=== PATIENT | female | born 1975 | race Caucasian/White ===

== ENCOUNTER → 2020-10-18 19:29 | Outpatient (REF) | payer MEDICAID, SELFPAY | LOC: HO.SL 19:29 | PROVIDERS: Visit Provider Internal Medicine | DX: G47.33 Obstructive sleep apnea (adult) (pediatric) (principal) | CPT/HCPCS: 95810 ==

== ENCOUNTER → 2021-05-18 09:57 | Outpatient (REF) | payer MEDICAID, SELFPAY ==
--- NOTE | 2021-05-18 10:00 | CA_ITS ---
Acquisition Time: 2021-05-18 10:43:04 Total Exercise Time: 00:07:31 Test Indications: EXERTIONAL CHEST PAIN Medications: Protocol: MOD JASMYN Max HR: 164 BPM 94% of Pred: 173 BPM Max BP: 156/080 mmHG Max Work Load: 4.4 METS Exercise stress test with exercise 26 sec of Jasmyn protocol and unable to tolerate incline of treadmill. Treadmill stopped and protocol changed to Modified Jasmyn protocol. Exercised 7 min 31 sec of Modified Jasmyn protocol, acheiving 4.3 MET workload, wiith mild sob, no chest discomfort, without arrythmia, with normotensive response and brisk chronotropic response to exercise, without EKG changes meeting criteria for ischemia. Test reviewed with Dr Hernandez Referred By: Omid Trejo Overread By: YOLANDA POLLOCK
== END ==
LOC: HO.CARD 09:57
PROVIDERS: Visit Provider Internal Medicine
DX: R07.9 Chest pain, unspecified (principal)
CPT/HCPCS: 93017

== ENCOUNTER 2023-06-15 12:16 | Emergency (ER) | payer MEDICAID, SELFPAY ==
--- NOTE | ~2023-06-15 | XR_ITS ---
EXAMINATION: XR KNEE, LEFT CLINICAL INFORMATION: Popping severe pain COMPARISON: Left knee radiograph from 01/04/2017 TECHNIQUE: Four views of the left knee. FINDINGS: No acute visible fracture or dislocation. Mild multicompartment degenerative changes. Mild narrowing medial femorotibial compartment. Periarticular osteophyte along the superior pole of the patella. Enthesopathy at the patellar tendon insertion site. Joint space alignment are otherwise maintained. No large knee joint effusion. Soft tissues are unremarkable. XR/XR knee LT 4V IMPRESSION: 1. No acute visible fracture or dislocation. 2. Mild multicompartment degenerative changes.
[2023-06-15 12:23] VITALS: BP 151/87; PULSE 88; RESP 20; TEMP 37.2; O2SAT 96; BMI 42.5
--- NOTE | 2023-06-15 12:23 | ED.LOWEXIN ---
HPI - Extremity Injury (Lower) General Chief Complaint: Extremity Injury, Lower Stated Complaint: L knee severe pain Time Seen by Provider: 06/15/23 12:31 Source: patient Mode of arrival: wheelchair Limitations: no limitations History of Present Illness HPI Narrative: Patient is a 47-year-old female presenting to the emergency department with acute onset of left knee pain. Patient reports that she was ambulating back from the bathroom last night when she felt and heard a popping sensation to the medial aspect of her left knee. Has had pain since and states she is unable to bear full weight on her left leg due to the pain. She denies any numbness or tingling to her left leg. Reports taking Excedrin without any relief of pain. MD complaint: knee injury Onset (ago): hour(s) Injury: Left: knee Type of Injury: unknown Place: home Severity: severe Relieving factors: rest Exacerbating factors: weight bearing, movement and palpation Context: walking Associated symptoms: snap/pop sensation Other symptoms: none Treatments prior to arrival: other (Excedrin) Related Data Home Medications Medication Instructions Recorded Confirmed albuterol sulfate 90 mcg/actuation 1 - 2 puff inhalation Q6H PRN 04/17/22 aerosol inhaler (ProAir HFA) wheezing ferrous sulfate 325 mg (65 mg 325 mg PO QAM 04/17/22 iron) tablet (FeroSul) Previous Rx's Medication Instructions Recorded amoxicillin 500 mg tablet 500 mg PO Q8H #30 tabs 04/17/22 Allergies Allergy/AdvReac Type Severity Reaction Status Date / Time coffee (Coffea arabica) Allergy Intermediate NAUSEA & Verified 04/17/22 13:08 [COFFEE] VOMITING onion [Onion] Allergy Intermediate HIVES Verified 04/17/22 13:08 tomato [TOMATO] Allergy Intermediate HIVES Verified 04/17/22 13:08 ibuprofen [IBUPROFEN] Allergy Unknown UNKNOWN, Verified 04/17/22 13:08 nausea and vomiting PEPPERS Allergy Intermediate HIVES Uncoded 04/17/22 13:08 coffee Allergy Unknown stomach Uncoded 04/17/22 13:08 upset flu vaccine Allergy Unknown anaphylaxis Uncoded 04/17/22 13:08 influenza Allergy Unknown throat Uncoded 04/17/22 13:08 swelling Pt thinks she has food Allergy Unknown Unknown Uncoded 04/17/22 13:08 allergy spicy condements Allergy Unknown rash Uncoded 04/17/22 13:08 tomato sauce Allergy Unknown rash Uncoded 04/17/22 13:08 Review of Systems Review of Systems: As per HPI. Yes all other systems are reviewed and are negative Constitutional: Constitutional: Reports as per HPI [facility] Social History Social History Patient Tobacco Use Status: Never used Tobacco Advance Directives: No Advance Directives Information Provided: No Physical Exam Vital Signs: Vital Signs: Last Vital Signs Temp 98.9 F 06/15/23 12:23 Pulse 88 06/15/23 12:23 Resp 20 06/15/23 12:23 BP 151/87 H 06/15/23 12:23 Pulse Ox 96 06/15/23 12:23 O2 Del Method Room Air 06/15/23 12:23 BMI result Body Mass Index 42.5 Vital signs have been reviewed and appear to be correct. Blood pressure elevated. Heart rate normal. Respiratory rate normal. Temperature normal. Oxygen saturation normal. Const: General: cooperative, healthy appearing and no acute distress Orientation/consciousness: oriented to person, oriented to place, oriented to time and patient oriented x3 Limitations: no limitations HEENT: Head: Yes normocephalic and Yes atraumatic Ears: external ears normal General nose exam: Normal external nose present Face and sinus: Yes face symmetric Mouth: oropharynx normal and moist mucous membranes Throat: Yes uvula midline Eyes: Pupils: Equal, round and reactive pupils present Neck: Neck: Yes normal visual inspection and Yes supple Resp: Effort & Inspection: normal respiratory effort and able to speak in complete sentences Auscultation: clear to auscultation bilaterally Cardio: Rate: regular rate Rhythm: regular rhythm Heart sounds: S1 normal heart sound present and S2 normal heart sound present GI: Palpation (GI): Soft to palpation and nontender Auscultation: normoactive bowel sounds : General: Yes no CVA tenderness Back/Spine/Pelvis: Back: no CVA tenderness Skin: General skin exam: elasticity normal and turgor normal Neuro: General: oriented to person, oriented to place, oriented to time, patient oriented x3, moves all extremities, no focal motor deficits and CN's II-XI intact bilaterally Cranial nerves: Yes Equal, round and reactive pupils present Cognition (Neuro): normal cognition Extrem: Other: Patient unable to tolerate passive flexion of left knee due to pain. General: Yes full ROM, Yes no pedal edema and Yes no calf tenderness Left lower extremity: knee (unable to perform full ligament exam r/t pain level) Details: normal to inspection and tenderness Location: of the medial joint line; no swelling, no ecchymosis and no unusual warmth and foot Details: vascular exam Details: dorsalis pedis pulse present and posterior tibial pulse present Psych: Mental Status: mental status grossly normal Affect: normal affect Thought process: Normal thought process present Course Course Course Narrative: RME: 47yo F w/PMHx obesity c/o left knee popping last night after getting out of the bathroom around 11pm. Admits to difficulty ambulating 2/2 pain. denies fall, direct injury In wheelchair in triage XRs ordered Full HPI, ROS and PE to be performed by primary ED provider. Medical Decision Making Medical Decision Making [facility] Narrative: Patient is a 47-year-old female presenting to the emergency department with acute onset of left knee pain. On exam patient is awake, A+Ox3, VS WNL, afebrile, normal neurological exam without focal deficits, no swelling, ecchymosis, erythema, or warmth to left knee, unable to fully extend knee passively r/t pain, limited ligament exam r/t pain, 2+ DP and PT pulses. Given reported symptoms and physical exam findings, initial differential includes left knee strain, sprain, fracture. X-ray notable for no acute abnormalities, degenerative changes. Results discussed with patient. Will place patient in knee immobilizer and provide crutches with crutch training and refer patient to Orthopedics for further evaluation of symptoms. Advised patient to keep leg elevated while at rest, apply ice several times daily, alternate Tylenol and ibuprofen. Instructed patient to follow-up with primary care provider as well. Return precautions discussed at bedside. Patient verbalized understanding of and agreement with plan. Differential Diagnosis Differential Diagnoses: The differential diagnosis associated with the presentation includes As per MDM Independent Interpretation I performed an independent interpretation of an: Plain X-Ray Interpretation: No acute abnormality, degenerative changes left knee Radiology Impression Discussion of test interpretation with radiology: I have reviewed the radiologist's reading. Radiologist Impression: XR/XR knee LT 4V IMPRESSION: 1.? No acute visible fracture or dislocation. 2.? Mild multicompartment degenerative changes. ? External Record Review External record reviewed: Inpatient record, Office record and Outpatient record Discharge Plan Discharge Clinical Impression: Left knee sprain Patient Disposition: Home, Self-Care Instructions: Knee Sprain (DC), Crutch Instructions (ED), Knee Immobilizer (ED), R.I.C.E. Treatment (ED) Additional Instructions: You have been evaluated in the emergency department today for knee pain. Your evaluation did not find evidence of medical conditions requiring emergent intervention at this time. We have provided crutches for you to use while your knee heals. Please rest, ice, and elevate your knee, and contact the orthopedic office [place] morning for an appointment for further evaluation. We recommend you take 600mg ibuprofen every 6 hours or 650mg Tylenol every 6 hours as needed for pain. If needed you can alternate these medications as they take 1 medication every 3 hours. For instance at noon take ibuprofen, then at 3:00 p.m. take Tylenol, then at 6:00 p.m. take ibuprofen. Please schedule an appointment for follow-up with your primary care provider this week. Return to the emergency department if you experience worsening pain, numbness, tingling, change of color in your leg, or any other concerning symptoms. Prescriptions: No Action ferrous sulfate [FeroSul] 325 mg (65 mg iron) tablet 325 mg PO QAM albuterol sulfate [ProAir HFA] 90 mcg/actuation HFA aerosol inhaler 1 - 2 puff inhalation Q6H PRN (Reason: wheezing) amoxicillin 500 mg tablet 500 mg PO Q8H Qty: 30 0RF Referrals: [facility] [place] Orth[facility] Surgeons [Provider Group]
== END 2023-06-15 15:15 | disposition home or self-care (01) ==
PROVIDERS: Emergency Provider Emergency Medicine; PCP Internal Medicine
DX: S83.92XA Sprain of unspecified site of left knee, initial encounter (principal); X58.XXXA Exposure to other specified factors, initial encounter; Y93.89 Activity, other specified; Y92.039 Unspecified place in apartment as the place of occurrence of the external cause; Y99.9 Unspecified external cause status
CPT/HCPCS: 73564; 99283

== ENCOUNTER 2023-07-11 13:35 | Outpatient (AMB) | payer MEDICAID, SELFPAY ==
--- NOTE | 2023-07-11 13:39 | A.OFFVIS_ITS ---
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 Pt states she has tried elevating, icing, heating, tylenol and aleve with no relief. Pt states she has severe swelling in her leg. Patient states that she has ?lost a lot of weight? but she is not sure how much. She denies any locking or giving way. The patient questions whether not the fat in my legs can be removed . She denies any locking or giving way. Allergies coffee (Coffea arabica) [COFFEE] Allergy (Intermediate, Verified 07/11/23 13:39) NAUSEA & VOMITING onion [Onion] Allergy (Intermediate, Verified 07/11/23 13:39) HIVES tomato [TOMATO] Allergy (Intermediate, Verified 07/11/23 13:39) HIVES ibuprofen [IBUPROFEN] Allergy (Unknown, Verified 07/11/23 13:39) UNKNOWN, nausea and vomiting PEPPERS Allergy (Intermediate, Uncoded 07/11/23 13:39) HIVES coffee Allergy (Unknown, Uncoded 07/11/23 13:39) stomach upset flu vaccine Allergy (Unknown, Uncoded 07/11/23 13:39) anaphylaxis influenza Allergy (Unknown, Uncoded 07/11/23 13:39) throat swelling Pt thinks she has food allergy Allergy (Unknown, Uncoded 07/11/23 13:39) Unknown spicy condements Allergy (Unknown, Uncoded 07/11/23 13:39) rash tomato sauce Allergy (Unknown, Uncoded 07/11/23 13:39) rash Medication List - Last Reconciled 07/11/23 by Kolby Strong MD albuterol sulfate 90 mcg/actuation (ProAir HFA) 1 - 2 puffs inhalation Q6H PRN ferrous sulfate (FeroSul) 325 mg PO QAM PFSH Surgical History (Updated 07/11/23 @ 13:42 by Candace Galindo MA) H/O hernia repair Social History (Updated 07/11/23 @ 13:41 by Candace Galindo MA) Household Members: Family Housing: House Alcohol intake: never Patient Tobacco Use Status: Never used Tobacco Use of substances other than those prescribed or required for medical reasons: No Physical Exam Extrem Other: Left knee examination shows a minimal effusion, no crepitus with range of motion, no joint line tenderness, negative Yuval's test, negative Romeo's test Results Reviewed Results Reviewed: X-rays of the patient's left knee show minimal joint space narrowing, no acute bony abnormalities Assessment & Plan Assessment & Plan (1) Left knee pain: Code(s): M25.562 - Pain in left knee Plan Ms. Camara presents with intermittent discomfort in her left knee most likely due to deconditioning and obesity. I had a lengthy discussion with the patient regarding the treatment options. I did recommend that the patient continue with her weight loss program. She questions whether not the lipomas in her thighs can be removed. I told her that we do not do that type of surgery here in Orthopedics. She could consider seeing a plastic surgeon for further information regarding this type of procedure. I did offer the patient a cortisone injection to help with her discomfort. The patient wishes to hold off on an injection for now. She will follow up with me on an as-needed basis. Thank you very much for asking me to see this very friendly patient. I spent 21 minutes in reviewing the patient's records and imaging studies, seeing the patient and documenting in the medical record. Coding Level of Care Code New Pt Level 2 (45718) Diagnoses Left knee pain M25.562
== END 2023-07-11 14:01 | disposition home or self-care (01) ==
PROVIDERS: PCP Internal Medicine; Visit Provider Orthopaedic Surgery
DX: M25.562 Pain in left knee (principal)
CPT/HCPCS: 99202

== ENCOUNTER → 2023-07-11 13:35 | Outpatient (BNVA) | payer MEDICAID, SELFPAY | PROVIDERS: PCP Internal Medicine; Visit Provider Orthopaedic Surgery | DX: M25.562 Pain in left knee (principal) | CPT/HCPCS: 99202 ==

== ENCOUNTER 2023-11-27 13:19 | Outpatient (REF) | payer MEDICAID, SELFPAY ==
[2023-12-03 04:24] LABS: HPV mRNA E6/E7 rflx Not Detected (Not Detected)
== END 2023-11-27 13:20 | disposition home or self-care (01) ==
LOC: HO.LNP 13:19
PROVIDERS: PCP Internal Medicine; Visit Provider Advanced Practice Midwife
DX: Z01.419 Encounter for gynecological examination (general) (routine) without abnormal findings (principal); E66.01 Morbid (severe) obesity due to excess calories; N95.1 Menopausal and female climacteric states; Z79.899 Other long term (current) drug therapy
CPT/HCPCS: 87624; 88142; 99386

== ENCOUNTER 2023-11-27 13:19 | Outpatient (AMB) | payer MEDICAID, SELFPAY ==
[2023-11-27 13:22] VITALS: BMI 51.6
--- NOTE | 2023-11-27 13:22 | A.OFFVIS_ITS ---
Intake Vital Signs 11/27/23 13:22 Height 5 ft 1 in Weight 273 lb BMI 51.6 BP not taken reason Medical Reason Intake Visit Reasons: New patient AUB Intake Note: having a lot of hot flashes, states she is leaking and has a tear. Internal Medicine Physician Assistant Required: No Information Interpreted: non-clinical & clinical Missing Persons Investigator: Missing Persons Investigator Present (Edwigeyn) Allergies coffee (Coffea arabica) [COFFEE] Allergy (Intermediate, Verified 11/27/23 13:28) NAUSEA & VOMITING onion [Onion] Allergy (Intermediate, Verified 11/27/23 13:28) HIVES tomato [TOMATO] Allergy (Intermediate, Verified 11/27/23 13:28) HIVES ibuprofen [IBUPROFEN] Allergy (Unknown, Verified 11/27/23 13:28) UNKNOWN, nausea and vomiting PEPPERS Allergy (Intermediate, Uncoded 11/27/23 13:28) HIVES coffee Allergy (Unknown, Uncoded 11/27/23 13:28) stomach upset flu vaccine Allergy (Unknown, Uncoded 11/27/23 13:28) anaphylaxis influenza Allergy (Unknown, Uncoded 11/27/23 13:28) throat swelling Pt thinks she has food allergy Allergy (Unknown, Uncoded 11/27/23 13:28) Unknown spicy condements Allergy (Unknown, Uncoded 11/27/23 13:28) rash tomato sauce Allergy (Unknown, Uncoded 11/27/23 13:28) rash Medication List - Last Reconciled 11/27/23 by Yani Jarvis CNM albuterol sulfate 90 mcg/actuation (ProAir HFA) 1 - 2 puffs inhalation Q6H PRN ferrous sulfate (FeroSul) 325 mg PO QAM Is last menstrual period known: No (hasn't had it in 6 months) HPI New patient AUB HPI Details 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 She said that she used to go to [facility] for Pap smears but her muscles would tighten in they would have to give her muscle relaxers to do the exam because she would push the thing out. She has had 3 children her oldest was killed by a route while her in [place] and she said that then they retaliate it on her and took her other children away.. She went into a big depression after that and that is when she gained a lot of the weight but it will not come off. Patient states that when she goes for a walk with her mother who wants to power walk she gets short of breath and asks her mother for the keys and goes back. She said her heart was checked out and everything is good. She says she used to have counselors but she does not want to talk to people anymore and she prefers to keep to herself and listen to her music and watch comedies on television and read her books. Is helps her get to her happy place. She currently lives with her mother but wants to live by herself. She has had 3 hernia surgeries and she feels that the tissue around the surgery is swollen and has no feeling. She gets muscle spasms that she can not control. She has been to several weight loss programs and has been frustrated saying that they keep changing the goals on her and when she loses the 20 lb they want her to lose they then tell her the goal is 25 lbs to lose. she feels she eats practically nothing and does not eat breakfast most days and says she drinks mostly water and gives a 24 hour recall of having had potatoes vegetables and a pork chop last night with nothing else. She says she is not able to lose weight and she is wondering why other people who were bigger were able to get the surgery. She says her primary care provider is in [facility] and she thought it been several years since she had had fasting blood work but then she said that she had had blood work to check for diabetes in September and that she did not have diabetes. She says that she has lipomas which are collections of fat tissue per her description on her arms and legs that she wants removed. She says sometimes she has leaking of urine. Sometimes she has constipation but she finds that she takes her medical marijuana and that helps. She does not think she has ever had an abnormal Pap smear. She thinks it has been a few years since her last mammogram. She said she had a sleep apnea machine but it was she sent it back. She said she sweats a lot at night and that really bothers her and she wonders why that does not help her lose weight because she sweats so much she has not had a period in 6 months. She has not had sex in 30 years. [facility] Surgical History (Updated 07/11/23 @ 13:42 by Candace Galindo MA) H/O hernia repair Family History (Updated 11/27/23 @ 13:29 by PATRICK Zuniga) Maternal Aunt Breast cancer Maternal Aunt Lung cancer Social History (Updated 07/11/23 @ 13:41 by Candace Galindo MA) Household Members: Family Housing: House Alcohol intake: never Patient Tobacco Use Status: Never used Tobacco Female Reproductive History Menstrual Age of Menarche: 10 control method: none Total pregnancies: 3 Full term: 3 Number of Living Children: 3 Date of last pap smear: 12/08/14 (negative) Date of Mammogram: 09/14/19 Physical Exam Vital Signs: BMI result Body Mass Index 51.6 Chest Breast/axilla inspection: Other (Adipose) Breast/axilla palpation: normal palpation of the breasts and normal palpation of the axillae GI Other: Adipose Other: Exam limited by habitus and patient tensing but vagina appeared within normal limits pink and moist glimpse of cervix appeared smooth but it re-treated from view repeatedly best attempt at Pap smear done we will see if that comes back adequate. Limited bimanual nontender no organomegaly appreciated.. Speculum Exam - Vagina: normal appearance of the vagina and other Speculum Exam - Cervix: normal appearance of the cervix and Other cervical findings present (limited views) Bimanual exam- vagina & uterus: other (uterus difficult to assess 2' habitus) Bimanual Exam- Adnexa, other: Other (palpation of adnexae limited 2' habitus) Extrem Other: Adipose tissue, patient calls it lipomas. Assessment & Plan Assessment & Plan (1) Women's annual routine gynecological examination: Code(s): Z01.419 - Encounter for gynecological examination (general) (routine) without abnormal findings (2) Obesity, morbid, BMI 50 or higher: Code(s): E66.01 - Morbid (severe) obesity due to excess calories (3) Cervical cancer screening: Comment: Cervix retreating from view with multiple speculum adjustments, best attempt at Pap done... Code(s): Z12.4 - Encounter for screening for malignant neoplasm of cervix (4) Perimenopausal symptoms: Code(s): N95.1 - Menopausal and female climacteric states Plan -----Discussed in this visit the following: healthy balanced diet, regular and consistent exercise, getting recommended health screens, doing the best she can for her particular health concerns, kegel exercises, pap smear screening and followup recommendations, mammography screening and SBE, normal changes in cycles in her life stage--- .Discussed in general terms the challenges of obesity and challenges for her health and efforts she is engaging in to manage this including dietary changes water intake attention to sleep inclusion of a regular exercise have it and dealing with the may need stressors of life that can contribute to obesity in general. Encouraged her to continue in all have her best efforts ----Discussed normal changes that happen premenapausally, perimenapausally, and postmenopausally, and ways to handle them. Discussed the normal variation, and the range of experiences that women experience. Discussed nutrition, health, need for exercise, both weight-bearing and aerobic. Also discussed the normal changes that happen with vaginal mucosal thinning and sensitivity, and simple more natural ways of handling these challenges. Discussed the real issues of hot flashes and in response to her question about a medication discussed that there can be potentially very many side effects and given all of the health concerns that we have touched on today and that are present given her history 1 would need to be very cautious about newer medications that are being discussed on television. Suggested ways of managing them and that there could be other issues at play as well that need to be checked out I urged her to get all of her fasting blood work with her primary care provider and be sure that any questions about diabetes and heart issues and liver issues or kidney issues are addressed discussed that it would not be necessarily a izaguirre thing to consider removal of pockets of fat on her arms and legs without losing weight 1st. Acknowledged the very real challenge of weight loss and that it can be a lifelong challenge and it is very very difficult once the weight comes on encouraged her to continue in her efforts. She says she has a primary care appointment coming up this December which is next month.. Since it sounds like her primary care provider is in the [facility] system consider discussing whether not a referral to their bariatric program would be of any benefit to her. Orders: Orders Pap Smear Today Z12.4 - Encounter for screening for malignant neoplasm of cervix MM tomosynthesis screening BI Today E66.01 - Morbid (severe) obesity due to excess calories, Z01.419 - Encounter for gynecological examination (general) (routine) without abnormal findings, Z12.31 - Encounter for screening mammogram for malignant neoplasm of breast, Z12.4 - Encounter for screening for malignant neoplasm of cervix Coding Level of Care Code New Pt Prev Care 40-64y(87090) Diagnoses Women's annual routine gynecological examination Z01.419 Obesity, morbid, BMI 50 or higher E66.01 Cervical cancer screening Z12.4 Perimenopausal symptoms N95.1
== END 2023-11-27 16:01 | disposition home or self-care (01) ==
LOC: HO.HWSM 13:19
PROVIDERS: PCP Internal Medicine; Visit Provider Advanced Practice Midwife
DX: Z01.419 Encounter for gynecological examination (general) (routine) without abnormal findings (principal); E66.01 Morbid (severe) obesity due to excess calories; Z12.4 Encounter for screening for malignant neoplasm of cervix; N95.1 Menopausal and female climacteric states
CPT/HCPCS: 99386

== ENCOUNTER 2024-03-12 13:57 | Outpatient (REF) | payer MEDICAID, SELFPAY ==
[2024-03-12 15:09] LABS: Estimated Average Glucose 120 mg/dL; Hemoglobin A1c % 5.8 % (<6.0)
== END 2024-03-12 13:58 | disposition home or self-care (01) ==
LOC: HO.LAB 13:57
PROVIDERS: Visit Provider Internal Medicine
DX: R73.03 Prediabetes (principal)
CPT/HCPCS: 36415; 83036

== ENCOUNTER 2024-09-25 13:33 | Outpatient (REF) | payer MEDICAID, SELFPAY ==
--- NOTE | ~2024-09-25 | US_ITS ---
EXAMINATION: RIGHT UPPER EXTREMITY DUPLEX CLINICAL INFORMATION: Pain COMPARISON: None TECHNIQUE: Real-time ultrasound and Doppler techniques (integrating B-mode 2-D vascular images, Doppler spectral analysis and color flow Doppler imaging) were utilized to interrogate the lower extremities. FINDINGS: RIGHT UPPER EXTREMITY: Subclavian artery proximal: 177 cm/s, triphasic Subclavian artery mid: 106 cm/s, triphasic Subclavian artery distal: 113 cm/s, triphasic Axillary artery: 138 cm/s, triphasic Brachial artery proximal: 112 cm/s, triphasic Brachial artery mid: 107 cm/s, triphasic Brachial artery distal: 102 cm/s, triphasic Radial artery mid: 79.5 cm/s, triphasic Ulnar artery mid: 80.8 cm/s, triphasic Underlying the area of palpable lump is an area of fat echogenicity measuring 4.4 x 1 x 3 cm. US/US arterial duplex UE RT IMPRESSION: 1. The right upper extremity arteries are patent. 2. Underlying the area of palpable lump is an area of fat echogenicity measuring 4.4 x 1 x 3 cm, like a lipoma or area of focal fat. Electronically signed by: Saurabh Luu MD 09/25/2024 04:48 PM EST
--- NOTE | ~2024-09-25 | US_ITS ---
EXAMINATION: US TRIPLEX LOWER EXTREMITY, BILATERAL CLINICAL INFORMATION: Bilateral leg edema COMPARISON: None available. TECHNIQUE: Color-flow triplex imaging with spectral analysis and compression Doppler were performed on the bilateral lower extremities. FINDINGS: Respiratory variation, normal compression and augmented flow are noted throughout the bilateral lower extremities. The visualized common femoral vein, superficial femoral vein, profunda femoral vein, popliteal vein and midcalf peroneal and posterior tibial venous segments show no evidence of deep venous thrombosis bilaterally. There is no Blum's cyst. US/US venous duplex LE BI IMPRESSION: No evidence of deep venous thrombosis involving the bilateral lower extremities. Electronically signed by: Neisha Tate MD 09/25/2024 03:23 PM EST
== END 2024-09-25 13:34 | disposition home or self-care (01) ==
LOC: HO.US 13:33
PROVIDERS: PCP Internal Medicine; Referring Provider Physician Assistant Surgical; Visit Provider Physician Assistant Surgical
DX: R60.9 Edema, unspecified (principal); M79.601 Pain in right arm
CPT/HCPCS: 93931; 93970

== ENCOUNTER 2025-05-28 11:46 | Outpatient (REF) | payer MEDICAID, SELFPAY ==
--- NOTE | ~2025-05-28 | MM_ITS ---
EXAMINATION: MM SCREENING DIGITAL BREAST TOMOSYNTHESIS, BILATERAL CLINICAL INFORMATION: Screening. Asymptomatic. COMPARISON: Mammography: Comparison is made with available priors TECHNIQUE: Digital breast mammography with tomosynthesis is performed in both the craniocaudal and mediolateral oblique views along with computer-aided detection (CAD). FINDINGS: There are scattered areas of fibroglandular density (ACR BI-RADS breast composition Category b). Left: There are no significant masses, abnormal calcifications, or other abnormalities. Right: Focal asymmetry central outer breast middle to posterior depth. No suspicious calcifications or other abnormal findings. MM/MM tomosynthesis screening BI IMPRESSION: Additional imaging is recommended ASSESSMENT: BI-RADS BI-RADS 0 - Incomplete: Needs additional Imaging. RECOMMENDATION: 1. Additional views of the right breast 2. Targeted ultrasound if warranted after review of the additional views. 3. Radiology department staff will contact the patient for additional imaging. 1 year F/U This examination should not preclude the clinical evaluation of a suspicious palpable abnormality. This patient's information was entered into a reminder system with a target due date for their next mammogram. Electronically signed by: Ara Omalley DO 06/01/2025 02:09 PM EDT
== END 2025-05-28 11:47 | disposition home or self-care (01) ==
LOC: HO.MAMMO 11:46
PROVIDERS: PCP Internal Medicine; Visit Provider Internal Medicine
DX: Z12.31 Encounter for screening mammogram for malignant neoplasm of breast (principal)
CPT/HCPCS: 77063; 77067

== ENCOUNTER → 2025-05-28 12:00 | Outpatient (BNV) | payer MEDICAID, SELFPAY | PROVIDERS: PCP Internal Medicine; Visit Provider Internal Medicine | DX: Z12.31 Encounter for screening mammogram for malignant neoplasm of breast (principal) | CPT/HCPCS: 77063; 77067 ==

== ENCOUNTER 2025-06-30 13:13 | Outpatient (REF) | payer MEDICAID, SELFPAY ==
--- NOTE | ~2025-06-30 | US_ITS ---
EXAMINATION: MM DIAGNOSTIC DIGITAL BREAST TOMOSYNTHESIS, RIGHT Limited right ultrasound. CLINICAL INFORMATION: Call back from screening for focal asymmetry in the central outer right breast. COMPARISON: Mammography: There is on PACS. TECHNIQUE: Digital breast tomosynthesis is performed in both the craniocaudal and mediolateral oblique views along with computer-aided detection (CAD). Synthesized 2D images are generated from the tomosynthesis. FINDINGS: There are scattered areas of fibroglandular density (ACR BI-RADS breast composition Category b). Circumscribed oval mass central outer breast middle to posterior depth persists on additional imaging projections. No suspicious calcifications or other abnormal findings. Targeted color Doppler ultrasound scanning in the right breast demonstrates a simple cyst at 8:00 6 cm from the nipple which correlates with the circumscribed oval mass on mammography. US/US breast RT limited mamm only IMPRESSION: Right: Simple cyst on ultrasound correlating with the mammographic circumscribed oval mass. Benign. ASSESSMENT: BI-RADS BI-RADS 2 - Benign Findings RECOMMENDATION: 1 year F/U Results were provided to the patient at time of visit by the technologist. This patient's information was entered into a reminder system with a target due date for their next mammogram. Electronically signed by: Ara Omalley DO 06/30/2025 02:31 PM EDT
--- OUTSIDE RECORDS SUMMARY | 2025-06-30 16:55 | XMS_ITS | Encounter Summary ---
Author Organization [facility] Address [address] [facility] [address] [place] [phone] Phone Care Team Providers Care Pilot Can Router Name Role Phone Unavailable Primary Care Provider Unavailabl e Encounter Details Date Type Department Care Team (Late st Contact Info) Description 09/14/1919 Hospital Encounter [facility],Outside Imaging [address] [place] [address] System, Provider Not In, [facility] [address] [address] Social History Tobacco Use Types Packs/Day Years Used Date Smoking Tobacco: Former Cigarettes 0.2 10 1 2000 Smokeless Tobacco: Never Alcohol Use Standard Drinks/Week Comments Not Currently 0 (1 standard drink = 0.6 oz pure alcohol) wine coolers for new years not since 2000 Child or Family Care Answer Date Record ed Do you have problems with on e of the following making it difficult for you to work, study, or receive health care? I choose not to answer 07/06/2024 Education Answer Date Recorded Are you interested in help w ith more adult education (for example, completing high school, GED, job training, learning the [place] language, technical skills, or developing parenting skills)? No 07/06/2024 Are you concerned about learning? Not on file 07/06/2024 No 07/06/2024 Yes 07/06/2024 Food Answer Date Recorded Within the past 6 months we worried whether our food would run out before we got money to buy more. Never True 07/06/2024 Within the past 6 months the food we bought just didn't last and we didn't have enough money to get more. Never True Residential Stability Answer Date Recor ded What is your housing situation today? I choose n ot to answer 07/06/2024 How many times have you move d in the past 12 months? Zero (I did not move) 07/06/2024 Paying for Meds Answer Date Recorded Do you have trouble paying for medicines? Yes 07/06/2024 Paying Utility Bills Answer Date Record ed Do you have trouble paying y our heating or electricity bill? I choose not to answer 07/06/2024 Transportation Answer Date Recorded Has the lack of transportati on kept you from medical appointments or from getting medications? No 07/06/2024 Digital Access Answer Date Recorded No 07/06/2024 Yes 07/06/2024 Do you have reliable internet access at home? Ye s 07/06/2024 Do you have a device (e.g., phone, tablet, computer) with a working camera? Yes 07/06/2024 SNAP & WIC Answer Date Recorded Do you receive benefits from SNAP (the Supplemental Nutrition Assistance Program) or the Food Stamp Program? Yes 07/06/2024 SNAP is a free program, interested in learning m ore? Not on file 07/06/2024 Can we help you enroll in SNAP? Not on file 07/06/2024 Benefits received from WIC? Not on file 06/15 WIC is a free program, interested in learning mo re? Not on file 07/06/2024 Can we help you enroll in WIC? Not on file 0 07/06/2024 Intimate Partner Violence Answer Date R ecorded Denied Basic Needs Not on file 07/06/2024 In the past 12 months have y ou been in a relationship with a person who hurts, threatens, or tries to control you? No 07/06/2024 Worried food would run out Not on file 07/06 In the past 12 months have y ou been in a relationship with a person who hurts, threatens, or tries to control you? No 07/06/2024 Comments No Sex and Gender Information Value Date Recorded Sex Assigned at Female 03/19/2022 2:13 PM EDT Legal Sex Female 10:31 PM EDT Gender Identity Female 03/19/2022 2:13 PM EDT Sexual Orientation Straight 03/19/2022 2: 13 PM EDT documented as of this encounter Functional Status documented as of this encounter Plan of Treatment Upcoming Encounters Date Type Department Care Team (Late st Contact Info) Description 07/07/2025 2:50 PM EDT Office Visit [facility] [address] [place] [address] [place] [address] Paul White MD [address] [facility], [address] [place] [address] [email or web address] 09/07/2025 10:30 AM EST Office Visit [facility] Internal Medicine [address] [place] [address] Omid Trejo MD [address] [place] [address] [email or web address] documented as of this encounter Procedures Procedure Name Priority Date/Time Associated Diagnosis Comments BI MAMMOGRAM OUTSIDE (NO INTERPRETATION) Routine 09/14/2019 12:00 AM EST documented in this encounter Results * Mammogram Outside (No Interpretation) (09/14/2019 12:00 AM EST) Narrative SYSTEMGENERATED, DOCUMENTATION - 12/06/2021 2:37 PM EST This study is for PACS storage only and not for interpretation. us Provider Not In System PhD IMG OUTSIDE IMAGING W /OUT INTERPRETATION Final Result documented in this encounter Visit Diagnoses Not on filedocumented in this encounter Additional Health Concerns Infection Onset Date Last Indicated Resolved Time CoV-Presumed 03/14/2022 03/14/2022 04/04/2022 1:22 AM EDT documented as of this encounter Additional Source Comments The information contained in this document represents components of the legal health record. It is not the complete legal health record.[facility]
--- OUTSIDE RECORDS SUMMARY | 2025-06-30 16:55 | XMS_ITS | Encounter Summary ---
Author Organization [facility] Address [address] [place] [address] [place] [address] Phone Care Team Providers Care Inspector Final Assembly Conveyor Line Name Role Phone Deepika Roche MD Unavailable Omid Trejo MD Primary Care Provider [phone] Omid Trejo MD Unavailable Encounter Details Date Type Department Care Team (Late st Contact Info) Description 11/29/2021 Procedure Pass [address] [address] Social History Tobacco Use Types Packs/Day Years Used Date Smoking Tobacco: Former Cigarettes 0.2 10 1 991 - 2000 Smokeless Tobacco: Never Alcohol Use Standard Drinks/Week Comments Not Currently 0 (1 standard drink = 0.6 oz pure alcohol) wine coolers for new years not since 2000 Comments No Sex and Gender Information Value Date Recorded Sex Assigned at Female 03/19/2022 2:13 PM EDT Legal Sex Female 10:31 PM EDT Gender Identity Female 03/19/2022 2:13 PM EDT Sexual Orientation Straight 03/19/2022 2: 13 PM EDT documented as of this encounter Plan of Treatment Upcoming Encounters Date Type Department Care Team (Late st Contact Info) Description 07/07/2025 2:50 PM EDT Office Visit [facility] [address] [place] [address] [place] [address] Paul White MD [address] [facility], [facility] [address] [place] [address] 09/07/2025 10:30 AM EST Office Visit [facility] [place] [facility] [address] [place], [place] [phone] Omid Trejo MD [address] [place], [place] [phone] documented as of this encounter Visit Diagnoses Not on filedocumented in this encounter Additional Health Concerns Infection Onset Date Last Indicated Resolved Time CoV-Presumed 03/14/2022 03/14/2022 04/04/2022 1:22 AM EDT Assessment Noted Time PHQ-2 Depression Total Score: 0 01/22/20 3:56 PM EDT documented as of this encounter Care Teams Inspector Final Assembly Conveyor Line Relationship Specialty Start Date End Date Omid Trejo MD [address] [place] [address] PCP - General Internal Medicine 10/31/20 Deepika Roche MD [address] [place] [address], [address] [address] Obstetrics and Gynecology 04/19/20 Omid Trejo MD [address] [place] [phone] Insurance Assigned Provider 12/17/20 06/22/23 documented as of this encounter Additional Source Comments The information contained in this document represents components of the legal health record. It is not the complete legal health record.[facility]
--- OUTSIDE RECORDS SUMMARY | 2025-06-30 16:55 | XMS_ITS | Encounter Summary ---
Author Organization [facility] Address [address] [place] [address] [place] [phone] Phone Care Team Providers Care Accountant Controller Name Role Phone Deepika Roche MD Unavailable Omid Trejo MD Primary Care Provider [phone] Omid Trejo MD Unavailable Encounter Details Date Type Department Care Team (Late st Contact Info) Description 02/05/2022 Procedure Pass [address] [place] [address] Social History Tobacco Use Types Packs/Day Years [...] Description 07/07/2025 2:50 PM EDT Office Visit [facility] [address] [place] [address] [place] [address] Paul White MD [address] [facility], [address] [place] [address] 09/07/2025 10:30 AM EST Office Visit [facility] [place] [facility] [address] [place], [place] [phone] Omid Trejo MD [address] [place], [place] [phone] documented as of this encounter Visit Diagnoses Not on filedocumented in this encounter Additional Health Concerns Infection Onset Date Last Indicated Resolved Time CoV-Presumed 03/14/2022 03/14/2022 04/04/2022 1:22 AM EDT Assessment Noted Time PHQ-2 Depression Total Score: 0 01/03/20 12:52 PM EDT documented as of this encounter Care Teams Accountant Controller Relationship Specialty Start Date End Date Omid Trejo MD [address] [place] [address] PCP - General Internal Medicine 10/31/20 Deepika Roche MD [address] [place] [address], [address] [address] Obstetrics and Gynecology 04/19/20 Omid Trejo MD [address] [place] [phone] Insurance Assigned Provider 12/17/20 06/22/23 documented as of this encounter Additional Source Comments The information contained in this document represents components of the legal health record. It is not the complete legal health record.[facility]
--- OUTSIDE RECORDS SUMMARY | 2025-06-30 16:55 | XMS_ITS | Clinical Summary ---
Author Organization [facility] Address [address] [place] [address] [place] [id number] Phone Care Team Providers Care Rag Shredder Name Role Phone Deepika Roche MD Unavailable Omid Trejo MD Primary Care Provider Allergies Active Allergy Reactions Criticality Noted Date Comments Coffee Nausea and/or Vomiting 10/31/2020 Influenza Virus Vaccines Anaphylaxis High 09/02/2019 Cephalexin Dizziness 03/12/2025 Medications albuterol (PROVENTIL HFA) 90 mcg/actuation inhalerIndicati ons:Moderate persistent asthma without complication Inhale 1 puff into the lungs every 6 (six) hours as needed for wheezing. 2 puffs as needed Inhalation QID PRN 8 g 3 03/10/20 24 Active fluticasone-ume clidin-vilanter (TRELEGY ELLIPTA) 100-62.5-25 mcg inhalation powderIndicatio ns:Asthma, persistent controlled Inhale 1 puff into the lungs daily. 60 each 3 03/12/20 24 Active naproxen sodium (ALEVE) 220 MG tablet Take 1 tablet (220 mg total) by mouth 2 (two) times a day with meals. 120 tablet 3 03/12/20 24 Active metroNIDAZOLE (METROCREAM) 0.75 % creamIndication s:Rosacea Apply topically 2 (two) times a day. Apply to face bid for 2 weeks 45 g 3 07/06/20 24 Active nystatin creamIndication s:Intertrigo Apply topically 2 (two) times a day. Apply to under breasts for 3 weeks 30 g 4 07/06/20 24 Active gabapentin (NEURONTIN) 300 MG capsuleIndicati ons:Hot flashes Take 1 capsule (300 mg total) by mouth 3 (three) times a day. 90 capsule 2 03/05/20 25 Active Additional Information Patient not taking.Reported on 03/23/2025 estradioL (VIVELLE-DOT) 0.1 mg/24 hrIndications:M enopausal symptoms Place 1 patch onto the skin 2 (two) times a week. 24 patch 3 03/25/20 25 Active progesterone (PROMETRIUM) 200 mg capsuleIndicati ons:Menopausal symptoms Take one capsule nightly. 90 capsule 3 03/23/20 25 Active hydroCHLOROthia zide 25 MG tabletIndicatio ns:Primary hypertension TAKE 1 TABLET(25 MG) BY MOUTH DAILY 90 tablet 03/29/20 25 Active estradioL (VIVELLE-DOT) 0.1 mg/24 hrIndications:M enopausal symptoms Place 1 patch onto the skin 2 (two) times a week. 24 patch 3 05/17/20 25 Active estradioL (VIVELLE-DOT) 0.1 mg/[address] 1 patch onto the skin 2 (two) times a week. 24 patch 3 05/27/20 25 Active metFORMIN (GLUCOPHAGE-XR) 500 MG 24 hr tabletIndicatio ns:Type 2 diabetes mellitus without complication, without long-term current use of insulin TAKE 1 TABLET(500 MG) BY MOUTH DAILY WITH DINNER 90 tablet 3 06/15/20 25 Active metFORMIN (GLUCOPHAGE-XR) 500 MG 24 hr tabletIndicatio ns:Type 2 diabetes mellitus without complication, without long-term current use of insulin Take 1 tablet (500 mg total) by mouth daily with dinner. 90 tablet 03/16/20 25 025 Discontinued Active Problems Problem Noted Date Diagnosed Date Cephalosporin adverse reaction 03/12/2025 Assessment & Plan (03/12/2025 10:42 AM EDT): From there is no evidence of reaction to the cephalosporin but now it has been several days since she stopped the Keflex. The arm negative for signs of cellulitis. Will obtain some labs including a CBC Chem-12. Will also check thyroid. Will we will check a diabetic marker as well. Will follow-up with the patient in August but sooner if needed. She is looking into bariatric surgery through Dr. Pedro. Class 3 severe obesity due t o excess calories with serious comorbidity and body mass index (BMI) of 50.0 to 59.9 in adult 12/29/2024 Assessment & Plan (03/23/2025 2:33 PM EDT): Will refer to weight management program at [facility]. I explained that they will review various options with her and she may benefit significantly from the GLP-1 medications. I explained that weight loss can also help reduce hot flashes and night sweats as well. Assessment & Plan (12/29/2024 3:20 PM EDT): Ideally we would start the patient on Zepbound 2.5 mg daily and she has qualifying reasons. But she is not ready to consider injecting a GLP-1 agonist. Right arm pain 09/24/2024 Assessment & Plan (09/24/2024 7:57 PM EST): On physical examination patient noted to have a mass located distally from the antecubital region/elbow on the right. It is tender to palpation. No erythema or warmth. Will obtain an ultrasound of the right upper extremity to rule out DVT. However the area of concern feels more like a lipoma if her ultrasound is negative for DVT I would refer her to surgery for a surgical consult. Lower extremity edema 01/01/2024 Assessment & Plan (01/01/2024 5:55 PM EDT): Trial of reversing the knee pain by prescribing double strength Lasix 40 mg daily a trial of 10 days to see if symptoms improve. If they do we can reduce to 20 mg and see if that helps. Then we should check potassium level. Routine general medical exam ination at a health care facility 06/28/2023 Assessment & Plan (07/06/2024 2:08 PM EDT): Exam positive for obesity. Her blood pressure is elevated today but it might be that the cuff is too small. We are encouraging her to check her blood pressure at home with a large cuff and report back to us. She is off of the ramipril but is still taking the Lasix. Will check electrolytes kidney function. Assessment & Plan (06/28/2023 3:17 PM EDT): Her blood pressure is well controlled with the ramipril. Lets check a lipid profile CBC Chem-7 with the prediabetes a hemoglobin A1c and the history of iron deficiency anemia CBC with ferritin level. Then we can renew the current medications that she is on. She is taking the topiramate for headaches but also to help with reducing appetite. Edema 06/28/2023 Assessment & Plan (09/24/2024 7:54 PM EST): Patient noted to have edema as well as pain to palpation of her calves on physical examination. Patient mentions that this has been ongoing for a little bit of time. I will order stat ultrasounds of her lower extremities to rule out DVT. She would like to have these done at [facility]. Assessment & Plan (06/28/2023 3:21 PM EDT): Lower extremity edema is trace, for swelling she can take 20 mg of Lasix daily. She should be mindful about salt intake especially with mild hypertension. Primary hypertension 06/12/2022 Assessment & Plan (03/10/2024 4:18 PM EDT): Hypertension well controlled with current listed antihypertensives. Denies side effects No change to dosing. Low Sodium diet reinforced. Continue to monitor condition. Assessment & Plan (01/01/2024 5:57 PM EDT): I have asked her to go back on the ramipril 5 mg and then we will follow-up in 2 months when we follow-up on Effexor for hot flashes. Take ramipril daily. Her arms are very large so to be difficult to check blood pressure at home. Assessment & Plan (02/15/2023 11:48 AM EDT): Blood pressure well controlled continue antihypertensives as such. Assessment & Plan (11/12/2022 2:40 PM EST): Hypertension well controlled with current listed antihypertensives. Denies side effects No change to dosing. Low Sodium diet reinforced. Continue to monitor condition. Assessment & Plan (06/12/2022 2:26 PM EDT): We will start the patient on ramipril for high blood pressure 5 mg and then see her back in 1 month's time. At that time we will check a Chem-7 to assess for electrolyte disturbances particularly potassium and assess BUN/creatinine. Low-sodium diet reinforced particularly hidden salts and foods. Cough 03/19/2022 COVID-19 virus infection 03/19/2022 Assessment & Plan (03/19/2022 3:06 PM EDT): This visit I believe was preprogrammed for her chronic medical illnesses including obesity, iron deficiency, prediabetes elevated blood pressure, asthma history. It is however overshadowed by her recent COVID-19 positivity and accompanying symptoms. Here in the office we determined even though that she is beyond the 5-day window for the antiviral she is not needing of any urgent attention regarding COVID but rather will heal out from the infection. This was conveyed to her today. She should drink plenty of fluids, continue with vitamin D and vitamin C supplementation. No antibiotics indicated at this time. The albuterol inhaler appears to be adequate enough, no need for prednisone at this time. Patient can continue with the Trelegy which she has been using. Discussion about weight loss surgery, we can table this discussion to 3 months from now, will consider rerouting the application to a different weight loss surgeon. Prediabetes 01/02/2022 Assessment & Plan (07/06/2024 2:07 PM EDT): I will check a hemoglobin A1c today with lipid profile Chem-12 and CBC. Will continue to see her on a every 6 month basis, sooner if the A1c requires it. Assessment & Plan (03/10/2024 4:19 PM EDT): Will reassess now on her physical exam in 4 months hemoglobin A1c to assess for diabetes. Assessment & Plan (02/15/2023 11:49 AM EDT): A1c to be reassessed today and then also in 4 months. Assessment & Plan (06/12/2022 2:27 PM EDT): Hemoglobin A1c should be assessed and we can do that in 1 month's time as she comes back for follow-up on blood pressure. Currently no signs of uncontrolled diabetes. Assessment & Plan (01/02/2022 1:46 PM EDT): Last A1c back in October 19 0.0% so we will continue to monitor in 3 months A1c, she will continue a diet that is higher in protein fiber and lower in processed carbs starch and sugar. Heat intolerance 10/27/2021 Assessment & Plan (10/27/2021 1:44 PM EST): She is having hot flashes and some nocturnal diaphoresis, let us obtain a TSH to make sure that she is not hyper or hypothyroid. Elevated glucose 10/27/2021 Assessment & Plan (03/19/2022 3:07 PM EDT): Patient does have prediabetes and this was again conveyed to her and in June when we see her again we will get another A1c going forward we should see her quarterly to see if this progresses, may consider metformin at that time. Her blood pressure was elevated here so we would encourage her to stay away from [facility]. In regards to the COVID related cough will call in some Robitussin with codeine. Assessment & Plan (10/27/2021 1:43 PM EST): Given her history of obesity and elevated fasting blood sugar check hemoglobin A1c and we will go over the results with her in about 4 weeks. Vaginal odor 08/09/2021 Assessment & Plan (08/09/2021 5:46 PM EDT): Cannot confirm BV; will treat empirically, advise repHresh weekly Rosacea 05/23/2021 Assessment & Plan (07/06/2024 2:09 PM EDT): The rosacea is quite prominent, she would benefit from MetroCream to applications a day. She should take it for at least a couple of weeks if not to for 1 month. Assessment & Plan (06/12/2022 2:28 PM EDT): Patient will continue with doxycycline 50 mg twice daily and MetroGel rosacea. She has some outbreak on her face she thinks is not related to the rosacea. We will refer the patient to as she wishes. Assessment & Plan (01/02/2022 1:46 PM EDT): The rosacea appears to be pretty well cleared up with the Doxy at 50 mg and the MetroCream nightly. I would impress upon her to continue this and I warned her about photosensitivity of Doxy as we approached summer. We will follow-up again in 3 months and see how she is doing. As it stands right now though I do not think she will need to see a bronze chaser unless there is treatment failure. Assessment & Plan (10/27/2021 1:43 PM EST): The rosacea is quite pronounced and so we will trial her on some p.o. Doxy having seen that MetroGel in the past had failed. 40 mg daily. I think I had sent 50 on account of corrigan differences. Either way I will see her back in 4 weeks at which point we will see if the treatment is working. Assessment & Plan (05/23/2021 2:36 PM EDT): Rosacea is apparent on her face not pustular but erythemic, previous trials of topical treatment had failed. Lets try a 30-day course of anti-inflammatory dosed doxycycline. 50 mg daily, patient should avoid excessive sunlight. Follow-up 30 days. Chest pain, exertional 04/21/2021 Assessment & Plan (05/23/2021 2:42 PM EDT): Reviewed the stress test with her, the result came back negative for any ischemic changes. Metrorrhagia 04/21/2021 Assessment & Plan (04/21/2021 11:28 AM EDT): Certainly the procedure needs to be done but we feel that the patient should have the exercise stress test first before proceeding with the procedure. Pre-op exam 04/12/2021 Assessment & Plan (09/01/2021 9:18 AM EST): First blood pressure came back high though with a little bit of time between the 2 blood pressures the blood pressure came down with the larger cuff to 130/90. I think we should look into this more for today this appears to be adequate regarding the upcoming procedure next Saturday. Check electrolytes kidney function in the context of this preop. Otherwise she is moderate risk for this low risk procedure, does not require any further cardiovascular testing. Assessment & Plan (04/21/2021 11:20 AM EDT): This is a preop exam for upcoming D&C along with hysteroscopy which would be considered a low risk procedure. The patient however is having exertional chest pain. It is substernal and has some risk factors for cardiovascular disease including secondary obesity. We have reviewed the most recent blood counts and we find her to be iron deficient still but not anemic. So the plan is to hold off on the procedure and obtain a exercise stress test. The patient's transportation abilities are limited to what her mother can do which would be [place] and therefore we will set up the exercise stress test in [place]. If this test comes back negative then we will allow her to proceed with the D&C and hysteroscopy. I did go over the abdominal x-ray with her, there was no IUD that the radiologist could find. There was some stool in the colon as the only finding. Migraine 03/28/2021 Assessment & Plan (09/24/2024 7:56 PM EST): Patient noted to have a history of migraines and states that she has been having intermittent headaches located in the frontal left temporal and occipital regions. She states that she has not had issues with migraines on the left side before. She states that she has been trying Tylenol however this has not provided much relief. She most recently got a prescription for naproxen therefore we will be trying this medication however she has undergone an MRI in the past back in 2021 for her migraines which was noted to be negative. I will refer her to Dr. Johnson at [facility] neurology -Continue naproxen twice daily with food Assessment & Plan (02/15/2023 11:48 AM EDT): Patient will take Topamax 50 mg nightly or a little bit before dinnertime. Assessment & Plan (03/28/2021 3:45 PM EDT): Migraines without aura, frequent enough where a prophylaxis might be beneficial. Added side effect of reduced appetite might come in handy for weight loss as well. Therefore trial of Topamax at 25 mg twice daily. If the patient tolerates without becoming too groggy, can increase to 50 mg twice daily. We will follow up with her again in 8 weeks to see how her migraines are. Rash and other nonspecific skin eruption 021 CASSANDRA (obstructive sleep apnea) 02/14/2021 Assessment & Plan (11/12/2022 2:41 PM EST): So the patient no longer taking CPAP for her CASSANDRA, will need in 3 months to figure out a different solution. For now recommend sleeping with head of the bed 20 degrees up. Assessment & Plan (11/29/2021 3:01 PM EST): Follow up with Sleep Medicine for assistance with CPAP function Assessment & Plan (10/27/2021 1:41 PM EST): She is currently waiting to see if she can get a CPAP machine but the supply chain is cut in part because of COVID. Patient will reach out to Dr. Loyola regarding the Trelegy but I am okay with writing it if need be. Assessment & Plan (02/14/2021 4:30 PM EDT): With the prior history of obstructive sleep apnea we recommend that the patient be seen again by a wood preparation supervisor this time with her at [facility] will send to [facility] sleep medicine. We advised her to have records release from [place] so that prior records can be reviewed by the sleep specialist. Patient in agreement to release the records and will follow up with sleep medicine in [place] and will be compliant with any treatment that is recommended. In particular weight loss might be improved if the patient gets a good night rest. Iron deficiency 11/15/2020 Assessment & Plan (01/02/2022 1:43 PM EDT): At this time we should continue with the ferrous sulfate but I will repeat the ferritin level along with a CBC 3 months from now prior to the visit and then we can see if she can come off of it. No report of blood in the stool for example or urogenital bleeding. Assessment & Plan (10/27/2021 1:42 PM EST): Check ferritin level and will suggest iron sulfate if needed. Assessment & Plan (09/01/2021 9:17 AM EST): On exam does not appear to be anemic, obtain a CBC prior to the surgery, would hold off surgery if severely anemic. Assessment & Plan (04/21/2021 11:25 AM EDT): We advised her to continue the iron tablets as she has been taking, this to support her iron deficiency which could be contributing to her chest pain. Assessment & Plan (11/15/2020 2:29 PM EST): Iron deficiency resulting in reduced energy, restart patient on Feosol 1 tablet daily, reassess iron levels in 2 months and blood counts. Patient will have a follow-up in 2 weeks we can see if she is tolerating the iron. Acute lymphangitis of multiple sites of upper ar m 11/15/2020 Assessment & Plan (11/15/2020 2:30 PM EST): The mass in the forearm is simply an extension of the subcutaneous tissues that are inflamed from the lymphangitis. CRP was very elevated most likely because of this. Because the lymphangitis is not known opening of the lymphangitis not seen. Counseled patient not to scratch the area, Keflex 500 mg 4 times daily. 10 days treatment. Follow-up in 2 weeks. Panniculitis 10/31/2020 Assessment & Plan (11/15/2020 2:29 PM EST): Continue with the nystatin powder and it can be used in 3 weeks courses for the inflammation. Assessment & Plan (10/31/2020 7:26 PM EST): Ultimately weight loss followed by resection of excessive skin folds would be the best course of action. For now however nystatin to help with candidal infection underneath the pannus. Iron deficiency anemia 10/31/2020 Assessment & Plan (02/15/2023 11:48 AM EDT): Repeat CBC to assess for anemia. Assessment & Plan (11/12/2022 2:39 PM EST): It would be reasonable to recheck ferritin level and CBC and then make suggestions on iron and vitamin C. Assessment & Plan (10/27/2021 1:41 PM EST): Reassessed today for iron deficiency and anemia, obtain ferritin and CBC. On exam no overt signs of anemia seen. Assessment & Plan (05/23/2021 2:35 PM EDT): Because the Doxy will interfere with the iron sulfate we will hold off with the iron sulfate and then repeat a ferritin when I see her back in 1 month's time. She did not have any symptoms of iron deficiency today. Assessment & Plan (10/31/2020 7:14 PM EST): Iron deficiency anemia last year requiring now follow-up. Patient not necessarily symptomatic with fatigue or shortness of breath. Obtain a CBC and a ferritin level and then will advised the patient on iron intake. I will have the patient back also to see if we can discern what the cause of this iron deficiency was. Arthralgia of both lower legs 08/10/2020 Abnormal uterine bleeding 03/15/2020 Overview (04/12/2021): Sig risk factors for EIn, unable to obtain office biopsy Assessment & Plan (04/12/2021 6:26 PM EDT): As U/s limited and SHG not feasible in office, D&C was recommended and she is returning to office now to have that done in a few weeks Labs ordered, she needs to see PCP re asthma exacerbation due to heat prior to surgery Assessment & Plan (03/15/2020 3:11 PM EDT): likely that the MIrena has been expelled; recommended SHG (described) and may need endometrial biopsy. Recommend making plan after SHG as far as addressing the bleeding Menopausal symptoms 01/22/2020 Assessment & Plan (03/23/2025 2:38 PM EDT): The natural history of the menopausal transition was reviewed with the patient. I reviewed that menopause is the last period confirmed by 12 months of no bleeding. I explained that many women will start to experience typical vasomotor symptoms several years before menopause or that may start around or shortly after the time of the last period. She seems to fall into the latter case. She notes that the hot flashes and night sweats are extreme and are significantly affecting the quality of her life. Despite her morbid obesity, she has no known history of coronary artery disease (5-year risk of NM based on calculator is approximately 6 to 7%), breast cancer, VTE, or stroke. She has been recently diagnosed with diabetes with a hemoglobin A1c of 6.5% and started on metformin. She was also hypertensive. I reviewed the small increased risk of breast cancer, stroke, VTE, and heart attack associated with the use of MHT. She has had a normal mammogram within the last year and will schedule one in the near future at [place]. I did recommend that she continue with annual mammographic screening while on combined HRT. I also recommended that she have her repeat cholesterol profile done at least every 2 years. I also reviewed nuisance side effects with her including bleeding. I explained that if the bleeding persist beyond 3 months, I would need to know about it. I also reviewed the possibility of breast tenderness and abdominal bloating which usually improves over time. Assessment & Plan (03/05/2025 3:29 PM EDT): Referral to RETIREMENT SALES CONSULTANT regarding the ongoing persisting hot flashes, trial of gabapentin 300 mg p.o. 3 times daily might help with hot flashes and neuropathic pain. Assessment & Plan (11/12/2022 2:40 PM EST): The patient appears to be in menopause, referral to [facility] where she had gone before perhaps 3 years ago. She would be a good candidate for hormone replacement, which I would prefer being delivered by gynecology. Ventral hernia without obstruction or gangrene 1 11/02/2018 Moderate asthma without complication 09/02/2019 Assessment & Plan (03/10/2024 4:18 PM EDT): Continue Trelegy for asthma along with albuterol inhaler as needed. Switch over to nebulizer and p.o. steroid given exacerbation. Assessment & Plan (04/21/2021 11:26 AM EDT): She did not sound asthmatic today though this is also something to be considered with the chest pain is exertional asthma but needs to be ruled out by exercise stress test. Assessment & Plan (11/15/2020 2:27 PM EST): As promised we sorted out her medications and now she will be just taking the Trelegy daily and she will start away the Symbicort and Flovent which are extraneous. She will follow up with her wood preparation supervisor as previously arranged. Her lungs sounded clear today. ProAir as needed. Assessment & Plan (10/31/2020 7:15 PM EST): Currently no shortness of breath or dyspnea, will continue with Trelegy and will make sure that patient is not taking redundant other medication such as Symbicort. Again I will be seeing her back in 2 weeks time to address this. Gastroesophageal reflux disease without esophagi tis 09/02/2019 Morbid obesity 09/02/2019 Assessment & Plan (03/05/2025 3:33 PM EDT): A lot of her symptoms will improve once she loses weight this could be lower extremity pressure along the shins or along the elbows. Unfortunately she had burned bridges with us as well as in [place]. We are hoping now that she has rides through her mom that she can set up with the [place] bariatric surgeon that we made a referral to. The patient will make an appointment with [facility] gynecology regarding the persisting ongoing hot flashes. The new medication that came out for hot flashes could be beneficial. It looks like she has a little bit of cellulitis on the lateral elbow. Keflex 4 times a day 500 mg for at least 5 days to see if that helps with the elbow pain. Assessment & Plan (12/29/2024 3:21 PM EDT): For both blood pressure elevation, and multi morbid state, will get billed blood pressure under better control with HCTZ 25 mg daily. Will follow-up on blood pressure in 2 months. Assessment & Plan (07/06/2024 2:08 PM EDT): Please see HPI for details. Assessment & Plan (03/10/2024 4:19 PM EDT): Prediabetes, CASSANDRA associated with morbid obesity, referral will be tried again out to [facility] bariatric surgery. Patient is willing to go. Assessment & Plan (01/01/2024 5:57 PM EDT): Weight loss could improve blood pressure and might improve the knee and rothman symptoms. Will reach out to the weight loss surgeons office to see if we can restart efforts to have the patient be seen for weight loss surgery. The patient is motivated. Assessment & Plan (06/28/2023 3:17 PM EDT): Counseled the patient is setting up with Dr. Zayas for possible bariatric surgery. She is having trouble with setting up the portal or doing a virtual stand-alone but she will need to work with Dr. Zayas staff. 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 I told her if that even if she becomes a candidate and gets the bariatric surgery approved she will still need to follow a bariatric diet. Assessment & Plan (02/15/2023 11:48 AM EDT): Will refer to [facility] weight management. Assessment & Plan (11/12/2022 2:41 PM EST): For the prediabetes recheck the a hemoglobin A1c and follow-up in 3 months. In regards to obesity, restart the Topamax and in 3 months if still insufficient will consider short course of phentermine. Assessment & Plan (07/31/2022 2:08 PM EDT): Dated with obese he is prediabetes which we will be monitoring against in 3 months. In the meantime we would like her to pursue different weight loss program for example bariatric surgery in [place] at [facility]. She will have to obtain rides herself to guarantee that she can get there on time. Will set up the referral for her when she is ready. Otherwise we will follow-up up with her regarding her other chronic conditions in 3 months at which time we will obtain a another hemoglobin A1c. Assessment & Plan (06/12/2022 2:27 PM EDT): With prediabetes, hypertension, obstructive sleep apnea asthma we recommend that the patient be seen by bariatric surgery and the patient was amenable be referred to the surgical team at [facility]. Assessment & Plan (01/02/2022 1:45 PM EDT): This patient has tried perhaps 4 to 5 x 2 get into a program to have bariatric surgery. In [place] she had failed to make it so far to have the surgery. 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 She had seen on television resection of adipose tissue from trouble areas. These are RL series where the candidate of the show has to lose a lot of weight for example. I talked to her about getting such a procedure and she will look into researching a plastic surgeon that might help her with that. We can set up a referral if her insurance will cover the visit to establish care but also the surgery itself. Certainly from the tension that she is feeling on her arms it would be medically indicated to have such a surgery to help lessen the pain and improve functionality. Assessment & Plan (11/29/2021 3:01 PM EST): Continue topiramte, increase fibre intake, increase activity Assessment & Plan (10/27/2021 1:42 PM EST): Counseled on weight loss. I believe the Topamax is written for that reason but it would appear she is not taking it at this time. There is a little bit of confusion about the Topamax, we can talk again about it in 4 weeks right now we are focusing more on starting Doxy for the rosacea which was very pronounced today. Assessment & Plan (09/01/2021 9:17 AM EST): The Topamax is both a membrane stabilizer for mood stability but doubles up as a medicine that might help her with her appetite and also with her migraines. This is a medication that I am writing and she is tolerating it well. So I would like to follow-up with her in October regarding this but also for blood pressure and heart rate. I will speak more to that below. In regards to her obesity as a risk factor it certainly is in regards to the surgery though surgery is low risk so we feel that the as long as the surgery or other procedures being done at [facility] patient will be fine. Assessment & Plan (04/21/2021 11:27 AM EDT): The patient is putting in the effort for weight loss from what I can gather on today's interview. Exercise might be more confident if the exercise stress test comes back negative then she will feel more assured and this will contribute then to weight loss if she is able to exercise more.. Assessment & Plan (03/28/2021 3:50 PM EDT): Unfortunately the phentermine was not accepted by her insurance to be paid for and so she cannot obtain it. There was no weight loss but she still tried to improve her diet over the past weeks. She did she did lose about 2 pounds from the previous appointment. The patient would like to do bariatric surgery and then followed up by resection of any excessive skin folds. She does have some lymphangitis and sclerosing edema of the skin upper extremities. The patient will converse with her insurance to see here in the area if any bariatric surgeon takes her insurance. Then she will research the surgeon and see if she wants to be referred to that surgeon. If there is no surgeon in the area that she can work with then the patient is advised to set up at [facility] with bariatric surgery. There is a subtle but goes from [facility] to [facility]. It is unclear to me if that shuttle is available to her or just patients with cancer. Which we can find that out for her but in the meantime we would like her to research her options through her insurance. She should continue in the next 8 weeks to reduce her intake of comfort foods. Were hoping that the Topamax may have the added benefit of reducing her appetite. She will drink plenty of water to reduce the likelihood of kidney stones. Assessment & Plan (02/14/2021 4:31 PM EDT): I would be amenable to trying this patient on a short course of phentermine. We will start at 15 mg daily and then after 7 days she will call back and we will ramp up to 37.5 mg if tolerated. Then we will see her back in 45 days and see if she is having success with this. This will be a short-term project I told her may be 3 or 4 months tops. At that point we might then reapply for bariatric surgery if that is her wish but may be do so over at [facility] or at [facility] according to what her insurance allows. Assessment & Plan (12/02/2020 4:22 PM EST): Plan is to refer patient to Dr. Nava to reassess feasibility and risk for weight loss surgery. Assessment & Plan (11/15/2020 2:28 PM EST): Again we spoke about the secondary conditions of her weight. This includes pannus with panniculitis but also of the abdominal hernia, worsening asthma, sleep apnea. Counseled patient on diet versus exercise in the roles that they play on weight loss. Assessment & Plan (10/31/2020 7:17 PM EST): This patient seen by Dr. Ramos in [place] for bariatric surgical consultation and potentially she would be set up for bariatric surgery but this never took place and the patient felt it was unfair to her. She was closed however to surgery but then it was canceled she said in part because she could not take barium sulfate for a prior p.o. contrast CT scan. Other issues includes augmented adipose tissue around the triceps leading to pain while skin is being stretched along the forearm and lower biceps. 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 Patient's diet is presented as being moderate. We can look into this when we see her again and consider a second opinion with different bariatric surgery for example [facility] or [facility]. Assessment & Plan (03/15/2020 3:13 PM EDT): Recommend the daily food diary a few days. Cut out all added sugar and most carbs as noted. Recommend real foods over shakes and bars. Start reading food labels Resolved Problems Problem Noted Date Diagnosed Date Resolved Date Forearm mass, right 10/31/2020 05/23/20 Assessment & Plan (02/14/2021 4:32 PM EDT): This is not so much a forearm mass but an area of eczema that is focal just to the right elbow lateral aspect. We will call in some triamcinolone 0.1% applied daily to the area and at night put a sleeve over the right arm so that the nails do not take into the skin and potentially infect the skin were inflamed. We can follow-up on this as well in 45 days, no antibiotic indicated today, no infection was seen. Assessment & Plan (12/02/2020 4:20 PM EST): This turned out to be a cellulitis of the forearm. It appears to be healed up but there is still some redness. We can call in another antibiotic if need be but for right now we will try to take down the itching and redness with some triamcinolone 0.1% applied twice daily for 10 days. Patient counseled not to touch the area or scratch it otherwise auto infect risk. Assessment & Plan (10/31/2020 7:19 PM EST): Suspicion of a seroma or hematoma under the skin of the proximal lateral right forearm possibly associated with a spider bite. He had there was a little bit of redness around the area but not enough to induce me to write a antibiotic. We will obtain an ultrasound to see if underneath the skin there is indeed hematoma or seroma. For now I would counselor aid the patient to apply ice 20 minutes on 10 minutes off and again. We will also write her some meloxicam 7.5 mg p.o. twice daily which can be also changed to 15 mg daily. The pain in her right lateral wrist and paresthesias in the first 3 fingers appears to be not carpal tunnel related but associated with the mass in her forearm. We will follow-up in 2 weeks on this matter. Encounters Date Type Department Care Team Description 06/13/2025 Refill [facility] Internal Medicine [address] [place] [address] Omid Trejo MD Medication Refill 06/02/2025 Orders Only [facility] [address] [place] [address] Saray Raphael MD 06/01/2025 Telephone [facility] [address] [place] [address] Lilly Ramesh RN Results 06/01/2025 Orders Only [facility] [address] [place] [address] Saray Raphael MD 05/07/2025 Telephone [facility] [address] [place] [address] [place] [address] Mariluz Parrish LPN PA for Estrogen patch from Last 3 Months Immunizations Immunization Administration Dates Next Due INFLUENZA, SPLIT VIRUS, TRIVALENT W/ PRESERVATIV E IM 10/01/2013 Pneumococcal polysaccharide PPSV23 01/08/2014 Family History Medical History Relation Comments Alcohol use disorder Brother Kidney disease Brother waiting for a ki dney transplant Breast cancer Maternal Aunt 1 Cancer Maternal Aunt 1 Bone cancer Maternal Aunt 2 Throat cancer Maternal Aunt 3 Breast cancer Maternal Grandmother Heart attack Maternal Uncle 1 Pancreatic cancer Maternal Uncle 1 Alcohol use disorder Mother Heart disease Mother Uterine cancer Sister Relation Status Comments Brother Alive Maternal Aunt 1 Maternal Aunt 2 Maternal Aunt 3 Alive Maternal Grandmother Maternal Uncle 1 Maternal Uncle 2 Maternal Uncle 3 Mother Alive Sister Alive fluid in brain Social History Tobacco Use Types Packs/Day Years Used Date Smoking Tobacco: Former Cigarettes 0.2 10 1 991 - 2000 Smokeless Tobacco: Never Tobacco Cessation:Counseling Given: Not Answered Alcohol Use Standard Drinks/Week Comments Not Currently [...] high school, GED, job training, learning the O[place]i language, technical skills, or developing parenting skills)? [...] Orientation Straight 03/19/2022 2: 13 PM EDT Last Filed Vital Signs Vital Sign Reading Time Taken Comments Blood Pressure 136/96 03/23/2025 1:56 PM EDT Pulse 80 03/12/2025 10:05 AM EDT Temperature 36.5 C (97.7 F) 03/12/2025 10:05 AM EDT Respiratory Rate 21 03/12/2025 10:05 AM EDT Oxygen Saturation 98% 03/12/2025 10:05 AM EDT Inhaled Oxygen Concentration - - Weight 132.5 kg (292 lb) 03/23/2025 1:56 PM EDT Height 154.9 cm (5' 0.98 ) 03/23/2025 1:56 PM ED T Body Mass Index 55.2 03/23/2025 1:56 PM EDT Plan of Treatment Upcoming Encounters Date Type Department Care Team (Late st Contact Info) Description 07/07/2025 2:50 PM EDT Office Visit [facility] [address] [place] [address] [place] [address] Paul White MD 22 [facility], [address] [place] [address] 09/07/2025 10:30 AM EST Office Visit [facility] Internal Medicine [address] [place] [address] Omid Trejo MD [address] [place] [address] [email or web address] Health Maintenance Due Date Last Done Comments COLOGUARD 2018 COLONOSCOPY 2018 COLORECTAL CANCER SCREENING 2018 FIT TEST 2018 FOBT 2018 SIGMOIDOSCOPY 2018 VIRTUAL COLONOSCOPY 2018 ZOSTER VACCINES (1 of 2) 2023 COVID-19 VACCINE ( season) 2025 DEPRESSION SCREENING 07/06/2025 07/06/2024 BLOOD PRESSURE 2025 03/23/2025 CREATININE LEVEL 03/12/2026 03/12/2025, , 06/28/2023, Additional history exists POTASSIUM LEVEL 03/12/2026 03/12/2025, 06/15, 06/28/2023, Additional history exists PAP SMEAR 11/27/2026 11/27/2023, 08/15, 09/05/2021, Additional history exists MAMMOGRAM 05/28/2027 05/28/2025, 05/14, 03/23/2025, Additional history exists SCREENING FOR DIABETES 03/12/2028 03/12/2025, 2023 LIPID PANEL 07/06/2029 07/06/2024, 06/14, 06/28/2023, Additional history exists SMOKING STATUS SCREENING (Once After 26 Yrs) Completed 03/23/2025 HEPATITIS A VACCINES Aged Out No long er eligible based on patient's age to complete this topic HIB VACCINES Aged Out No longer eligi ble based on patient's age to complete this topic MENINGOCOCCAL VACCINES (ACWY) Aged Out No longer eligible based on patient's age to complete this topic MENINGOCOCCAL VACCINES (B) Aged Out N o longer eligible based on patient's age to complete this topic Medical Devices Implanted Type Area Solderer Torch Device Identifier Shelf Expiration Date Model / Serial / Lot Intrauterine Device Intrauterine Device Description:Mirena Procedures Procedure Name Priority Date/Time Associated Diagnosis Comments BI US BREAST (RIGHT) Routine 06/02/2025 12:58 PM EDT Abnormal mammogram of right breast BI MAMMOGRAM DIAGNOSTIC (RIGHT) Routine 06/02/2025 12:58 PM EDT Abnormal mammogram of right breast HM MAMMOGRAPHY Routine 05/28/2025 2:55 PM EDT HM MAMMOGRAPHY Routine 05/28/2025 12:55 PM EDT COMPREHENSIVE METABOLIC PANEL Routine 03/12/2025 10:31 AM EDT Morbid obesity LIPID PANEL Routine 07/06/2024 2:26 PM EDT Routine general medical examination at a [facility] care facility PAP TEST Routine 11/27/2023 1:13 PM EST from Last 3 Months or Most Recently Relevant to Health Maintenance Results * HM MAMMOGRAPHY FOR RESULT ENTRY ONLY (05/28/2025 2:55 PM EDT) us Historical Provider HEALTH MAINTENANCE Final Result * HM MAMMOGRAPHY FOR RESULT ENTRY ONLY (05/28/2025 12:55 PM EDT) us Historical Provider MD HEALTH MAINTENANCE Final Result * (ABNORMAL) Comprehensive metabolic panel (03/12/2025 10:31 AM EDT) SODIUM 142 133 - 146 mmol/L [facility] POTASSIUM 3.8 3.3 - 5.1 mmol/L [facility] CHLORIDE 106 96 - 108 mmol/L [facility] CO2 27 21 - 35 mmol/L [facility] BUN 10 6 - 19 mg/dL [facility] CREATININE 0.50 0.5 - 1.5 mg/dL [facility] GLUCOSE 126(H) 70 - 99 mg/dL [facility] ALBUMIN 4.1 3.9 - 4.8 g/dL [facility] TOTAL PROTEIN 8.2(H) 6.5 - 8.0 g/dL [facility] CALCIUM 8.7 8.4 - 10.3 mg/dL [facility] ALKALINE PHOSPHATASE 154(H) 39 - 117 U/L [facility] TOTAL BILIRUBIN 0.5 0.0 - 1.2 mg/dL [facility] AST 49(H) 0 - 37 U/L [facility] ALT 33 0 - 40 U/L [facility] GLOBULIN 4.1 1 - 4.8 g/dL [facility] EGFR 113 >59 mL/min/1.7 3m2 [facility] Comment:Estimated glomerular filtration rate calculated using the CKD-EPI refit equation. ANION GAP 13 10 - 20 mmol/L [facility] Blood 03/12/2025 10:3 1 AM EDT 03/12/2025 10:37 AM EDT us Omid Trejo MD LAB BLOOD ORDERABLES Final Resul t [address] [address] * (ABNORMAL) Lipid panel (07/06/2024 2:26 PM EDT) HDL 37 mg/dL [facility] Comment: Interpretation <40 mg/dL: Low HDL cholesterol (major risk factor for CHD) Greater than or equal to 60 mg/dL: High HDL cholesterol ( negative risk factor for CHD) HDL - cholesterol is affected by a number of factors, e.g. smoking, excerise, hormones, sex and age. CHOLESTEROL 187 0 - 240 mg/dL [facility] TRIGLYCERIDES 151 30 - 160 mg/dL [facility] LDL 120 50 - 129 mg/dL [facility] Comment: LDL levels in terms of risk for coronary heart disease: <100 mg/dL: Optimal 100-129 mg/dL: Near or above optimal 130-159 mg/dL: Borderline high 160-189 mg/dL: High >190 mg/dL: Very High CARDIAC RISK RATIO 5.1(H) 3.3 - 4.4 [facility] Blood 07/06/2024 2:26 PM EDT 07/06/2024 2:29 PM EDT Omid Trejo MD LAB BLOOD ORDERABLES Final Resul t [address] [address] * Pap Test (11/27/2023 1:13 PM EST) us Historical Provider CYTOLOGY ORDERABLES Edite d Result - Final from Last 3 Months or Most Recently Relevant to Health Maintenance Insurance [facility] [place] [address] [place] [address] ACO [facility] ACO [facility] A[facility] Advance Directives For more information, please contact: [phone] (9AM - 5PM [facility], Saturday-Saturday) * Full Code (Latest Code Status on File) Date Activated Date Inactivated Comments 09/05/2021 10:32 AM Question Answer Comments Code Status Confirmed With: Patient Care Teams Rag Shredder Relationship Specialty Start Date End Date Omid Trejo MD [address] [place] [id number] [email or web address] PCP - General Internal Medicine 10/31/20 Deepika Roche MD [address] [place] [address], [facility] [address] [place] [address] [email or web address] Obstetrics and Gynecology 04/19/20 Additional Source Comments The information contained in this document represents components of the legal health record. It is not the complete legal health record.[facility]
--- OUTSIDE RECORDS SUMMARY | 2025-06-30 16:55 | XMS_ITS | Encounter Summary ---
Author Organization [facility] Address [address] [facility] [address] [place] [phone] Phone Care Team Providers Care Greenkeeper Name Role Phone Deepika Roche MD Unavailable Omid Trejo MD Primary Care Provider [phone] Encounter Details Date Type Department Care Team (Late st Contact Info) Description 06/01/2025 Orders Only [facility] Internal Medicine [address] [place] [address] Provider, MD Saray [address] [place] [address] Social History Tobacco Use Types Packs/Day Years Used Date Smoking Tobacco: Former Cigarettes 0.2 10 1 - 2000 Smokeless Tobacco: Never Alcohol Use [...] high school, GED, job training, learning the Slovak language, technical skills, or developing parenting skills)? [...] Office Visit [facility] [address] [place] [address] [place] [address] Paul White MD [address] [address] 09/07/2025 10:30 AM EST Office Visit [facility] Internal Medicine [address] [place], [place] [phone] Omid Trejo MD [address] [place], [place] [phone] documented as of this encounter Procedures Procedure Name Priority Date/Time Associated Diagnosis Comments HM MAMMOGRAPHY Routine 05/28/2025 2:55 PM EDT documented in this encounter Results * MAMMOGRAPHY FOR RESULT ENTRY ONLY (05/28/2025 2:55 PM EDT) us Historical Provider HEALTH MAINTENANCE Final Result documented in this encounter Visit Diagnoses Not on filedocumented in this encounter Additional Health Concerns Assessment Noted Time PHQ-2 Depression Total Score: 0 07/06/20 24 1:40 PM EDT documented as of this encounter Care Teams Greenkeeper Relationship Specialty Start Date End Date Omid Trejo MD [address] [place], [place] [phone] PCP - General Internal Medicine 10/31/20 Deepika Roche MD 22 [facility], [address] [address] Obstetrics and Gynecology 04/19/20 documented as of this encounter Additional Source Comments The information contained in this document represents components of the legal health record. It is not the complete legal health record.[facility]
--- OUTSIDE RECORDS SUMMARY | 2025-06-30 16:55 | XMS_ITS | Encounter Summary ---
Author Organization [facility] Address [address] [place] [address] Phone Care Team Providers Care Worm Raiser Name Role Phone Lynnette Yu MD Primary Care Provider [phone] Lynnette Yu MD Unavailable Deepika Roche MD Unavailable Omid Trejo MD Primary Care Provider Omid Trejo MD Unavailable Encounter Details Date Type Department Care Team (Late st Contact Info) Description 05/10/2020 Procedure Pass OR Admitting Dept - Virtual Department [address] [place] [address] Social History Tobacco Use Types Packs/Day Years Used Date Smoking Tobacco: Former Cigarettes 1 12 1 11/02/1987 - 09/02/2000 Smokeless Tobacco: Never Alcohol Use Standard Drinks/Week Comments Never 0 (1 standard drink = 0.6 oz pur e alcohol) wine coolers for new years Comments No Sex and Gender Information Value Date Recorded Sex Assigned at Female 03/19/2022 2:13 PM EDT Legal Sex Female 10:31 PM EDT Gender Identity Female 03/19/2022 2:13 PM EDT Sexual Orientation Straight 03/19/2022 2: 13 PM EDT documented as of this encounter Plan of Treatment Upcoming Encounters Date Type Department Care Team (Late Contact Info) Description 07/07/2025 2:50 PM EDT Office Visit [facility] [address] [place] [address] [place] [address] Paul White MD 22 [facility], [address] [place] [address] 09/07/2025 10:30 AM EST Office Visit [facility] Internal Medicine [address] [place] [address] Omid Trejo MD [address] [place] [address] [email or web address] documented as of this encounter Visit Diagnoses Not on filedocumented in this encounter Additional Health Concerns Infection Onset Date Last Indicated Resolved Time CoV-Presumed 03/14/2022 03/14/2022 04/04/2022 1:22 AM EDT Assessment Noted Time PHQ-2 Depression Total Score: 0 01/22/20 3:56 PM EDT documented as of this encounter Care Teams Worm Raiser Relationship Specialty Start Date End Date Lynnette Yu MD PCP - General Internal Medicine 09/02/19 10/30/20 Omid Trejo MD [address] [place] [address] PCP - General Internal Medicine 10/31/20 Lynnette Yu MD [address] [place] [address] Insurance Assigned Provider 02/17/20 12/17/20 Deepika Roche MD 22 [facility], [address] [place] [address] Obstetrics and Gynecology 04/19/20 Omid Trejo MD [address] [place] [address] [email or web address] Insurance Assigned Provider 12/17/20 06/22/23 documented as of this encounter Additional Source Comments The information contained in this document represents components of the legal health record. It is not the complete legal health record.[facility]
--- OUTSIDE RECORDS SUMMARY | 2025-06-30 16:55 | XMS_ITS | Patient Health Record ---
Author Organization [facility] Address [address] [place] [address] Care Team Providers Care Clinical Engineering Director Name Role Phone Hilda MACK, Lamin Primary Care Provider Unavaila Ranjeet Khalil Jr Unavailable Reason For Referral No Information Plan Of Treatment No Information Insurance Providers Payer Name Payer Address Payer Phone Subscriber Number Group Number Insured Name Patient Relationship to Insured Coverage Start Date Coverage End Date MEDICAID OF [facility] [address] [place] [phone] [id number] STEPH MOSQUEDA Self - patient is the insured
--- OUTSIDE RECORDS SUMMARY | 2025-06-30 16:55 | XMS_ITS | Encounter Summary ---
Author Organization [facility] Address [address] [facility] [address] [place] [address] Phone Care Team Providers Care Candle Maker Name Role Phone Deepika Roche MD Unavailable Omid Trejo MD Primary Care Provider [phone] Omid Trejo MD Unavailable Encounter Details Date Type Department Care Team (Late Contact Info) Description 12/06/2021 Ancillary Orders [facility],Outside Imaging 30 [place] [address] System, Provider [place] In, [place] [address] Social History Tobacco Use Types Packs/Day Years Used Date Smoking Tobacco: Former Cigarettes 0.2 10 1 1 - 2000 Smokeless Tobacco: Never Alcohol [...] Description 07/07/2025 2:50 PM EDT Office Visit [facility]YN & Midw[facility]ery [address] [place] [address] [place] [address] Paul White MD 22 [facility], [address] [place] [address] 09/07/2025 10:30 AM EST Office Visit [facility] Internal Medicine 40 [place], [place] [phone] Omid Trejo MD 40 [place], [place] [phone] documented as of this encounter Results * Mammogram Outside (No Interpretation) (04/11/2016 12:00 AM EDT) Narrative SYSTEMGENERATED, DOCUMENTATION - 12/06/2021 2:49 PM EST This study is for PACS [...] Time PHQ-2 Depression Total Score: 0 01/22/20 20 3:56 PM EDT documented as of this encounter Care Teams Candle Maker Relationship Specialty Start Date End Date Omid Trejo MD [address] [place] [address] PCP - General Internal Medicine 10/31/20 Deepika Roche MD [address] [place] [address], [address] [place] [address] Obstetrics and Gynecology 04/19/20 Omid Trejo MD [address] [place] [address] [phone] Insurance Assigned Provider 12/17/20 06/22/23 documented as of this encounter Additional Source Comments The information contained in this document represents components of the legal health record. It is not the complete legal health record.[facility]
--- OUTSIDE RECORDS SUMMARY | 2025-06-30 16:55 | XMS_ITS | Encounter Summary ---
Author Organization [facility] Address [address] [facility] [address] [place] [address] Phone Care Team Providers Care Automatic Corn Grinder Operator Name Role Phone Deepika Roche MD Unavailable Omid Trejo MD Primary Care Provider [phone] Omid Trejo MD Unavailable Encounter Details Date Type Department Care Team (Late Contact Info) Description 12/06/2021 Ancillary Orders [facility],Outside Imaging 30 [place] [address] System, Provider Not In, [place] [address] Social History Tobacco Use Types Packs/Day Years [...] Description 07/07/2025 2:50 PM EDT Office Visit [facility] OBGYN & Midwifery [address] [place] [address] [place] [address] Paul White MD 22 [facility], [address] [place] [address] 09/07/2025 10:30 AM EST Office Visit [facility] Internal Medicine 40 [place], [place] [phone] Omid Trejo MD 40 [place], [place] [phone] [email or web address] documented as of this encounter Results * Mammogram Outside (No Interpretation) (08/18/2018 12:00 AM EST) Narrative SYSTEMGENERATED, DOCUMENTATION - 12/06/2021 2:38 PM EST This study is for PACS [...] documented as of this encounter Care Teams Automatic Corn Grinder Operator Relationship Specialty Start Date End Date Omid Trejo MD [address] [place] [address] PCP - General Internal Medicine 10/31/20 Deepika Roche MD [address] [place] [address], [address] [place] [address] Obstetrics and Gynecology 04/19/20 Omid Trejo MD [address] [place] [address] [phone] Insurance Assigned Provider 3/6/21 9/9/23 documented as of this encounter Additional Source Comments The information contained in this document represents components of the legal health record. It is not the complete legal health record.[facility]
--- OUTSIDE RECORDS SUMMARY | 2025-06-30 16:55 | XMS_ITS | Encounter Summary ---
Author Organization [facility] Address [address] [place] [address] [place] [address] Phone Care Team Providers Care Skydiving Instructor Name Role Phone Deepika Roche MD Unavailable Omid Trejo MD Primary Care Provider [phone] Omid Trejo MD Unavailable Encounter Details Date Type Department Care Team (Late st Contact Info) Description 09/05/2021 Procedure Pass OR Admitting Dept - Virtual Department 30 [place] [address] Social History Tobacco Use Types Packs/Day Years [...] Office Visit [facility] [address] [place] [address] [place] [address] Paul White MD 22 [facility], [address] [address] 09/07/2025 10:30 AM EST Office Visit [facility] Internal Medicine 40 [place], [place] [phone] Omid Trejo MD 40 [place], [place] [phone] documented as of this encounter Visit Diagnoses Not on filedocumented in this encounter Additional Health Concerns Infection Onset Date Last Indicated Resolved Time CoV-Presumed 03/14/2022 03/14/2022 04/04/2022 1:22 AM EDT Assessment Noted Time PHQ-2 Depression Total Score: 0 01/22/20 3:56 PM EDT documented as of this encounter Care Teams Skydiving Instructor Relationship Specialty Start Date End Date Omid Trejo MD [address] [place] [address] PCP - General Internal Medicine 10/31/20 Deepika Roche MD [address] [place] [address], [address] [address] Obstetrics and Gynecology 04/19/20 Omid Trejo MD [address] [place] [phone] Insurance Assigned Provider 12/17/20 06/22/23 documented as of this encounter Additional Source Comments The information contained in this document represents components of the legal health record. It is not the complete legal health record.[facility]
--- OUTSIDE RECORDS SUMMARY | 2025-06-30 16:55 | XMS_ITS | Encounter Summary ---
Author Organization [facility] Address [address] [facility] [address] [place] [address] Phone Care Team Providers Care Editor & Co Founder Name Role Phone Deepika Roche MD Unavailable Omid Trejo MD Primary Care Provider Omid Trejo MD Unavailable Encounter Details Date Type Department Care Team (Late Contact Info) Description 12/06/2021 Ancillary Orders [facility],Outside Imaging 30 [place] [address] System, Provider Not In, [place] [address] Social History Tobacco Use Types Packs/Day Years [...] Description 07/07/2025 2:50 PM EDT Office Visit [facility] OBGYN & Midwifery [address] [place] [address] [place] [address] Paul White MD 22 [facility], [address] [place] [address] 09/07/2025 10:30 AM EST Office Visit [facility] Internal Medicine 40 [place], [place] [phone] Omid Trejo MD 40 [place], [place] [phone] documented as of this encounter Results * [...] documented as of this encounter Care Teams Editor & Co Founder Relationship Specialty Start Date End Date Omid Trejo MD [address] [place] [address] PCP - General Internal Medicine 10/31/20 Deepika Roche MD [address] [place] [address], [address] [place] [address] Obstetrics and Gynecology 04/19/20 Omid Trejo MD [address] [place] [address] [phone] Insurance Assigned Provider 3/6/21 9/9/23 documented as of this encounter Additional Source Comments The information contained in this document represents components of the legal health record. It is not the complete legal health record.[facility]
--- OUTSIDE RECORDS SUMMARY | 2025-06-30 16:55 | XMS_ITS | Encounter Summary ---
Author Organization [facility] Address [address] [facility] [address] [place] [address] Phone Care Team Providers Care Tractor Driver Teamster Name Role Phone Deepika Roche MD Unavailable Omid Trejo MD Primary Care Provider [phone] Omid Trejo MD Unavailable Encounter Details Date Type Department Care Team (Late Contact Info) Description 12/06/2021 Ancillary Orders [facility],Outside Imaging 30 [place] [address] System, Provider Not In, [place] [address] Social History Tobacco Use Types Packs/Day Years [...] Description 07/07/2025 2:50 PM EDT Office Visit [facility] OBGYN & Midwifery [address] [place] [address] [place] [address] Paul White MD 22 [facility], [address] [place] [address] 09/07/2025 10:30 AM EST Office Visit [facility] Internal Medicine 40 [place], [place] [phone] Omid Trejo MD 40 [place], [place] [phone] documented as of this encounter Results * Mammogram Outside (No Interpretation) (04/11/2015 12:00 AM EDT) Narrative SYSTEMGENERATED, DOCUMENTATION - 12/06/2021 2:40 PM EST This study is for PACS [...] documented as of this encounter Care Teams Tractor Driver Teamster Relationship Specialty Start Date End Date Omid Trejo MD [address] [place] [address] PCP - General Internal Medicine 10/31/20 Deepika Roche MD [address] [place] [address], [address] [place] [address] Obstetrics and Gynecology 04/19/20 Omid Trejo MD [address] [place] [address] [phone] Insurance Assigned Provider 12/17/20 06/22/23 documented as of this encounter Additional Source Comments The information contained in this document represents components of the legal health record. It is not the complete legal health record.[facility]
--- OUTSIDE RECORDS SUMMARY | 2025-06-30 16:55 | XMS_ITS | Encounter Summary ---
Author Organization [facility] Address [address] [facility] [address] [place] [address] Phone Care Team Providers Care Music Professor Name Role Phone Deepika Roche MD Unavailable Omid Trejo MD Primary Care Provider Omid Trejo MD Unavailable Encounter Details Date Type Department Care Team (Late Contact Info) Description 12/06/2021 Ancillary Orders [facility],Outside Imaging 30 [place] [address] System, Provider [place] In, [place] [address] Social History Tobacco Use Types Packs/Day Years [...] Description 07/07/2025 2:50 PM EDT Office Visit [facility] OBGYN & Midwifery [address] [place] [address] [place] [address] Paul White MD 22 [facility], [address] [place] [address] 09/07/2025 10:30 AM EST Office Visit [facility] Internal Medicine 40 [place], [place] [phone] Omid Trejo MD 40 [place], [place] [phone] documented as of this encounter Results * Mammogram Outside (No Interpretation) (01/12/2015 12:00 AM EDT) Narrative SYSTEMGENERATED, DOCUMENTATION - 12/06/2021 2:50 PM EST This study is for PACS [...] documented as of this encounter Care Teams Music Professor Relationship Specialty Start Date End Date Omid Trejo MD [address] [place] [address] PCP - General Internal Medicine 10/31/20 Deepika Roche MD [address] [place] [address], [address] [place] [address] Obstetrics and Gynecology 04/19/20 Omid Trejo MD [address] [place] [address] [phone] Insurance Assigned Provider 12/17/20 06/22/23 documented as of this encounter Additional Source Comments The information contained in this document represents components of the legal health record. It is not the complete legal health record.[facility]
--- OUTSIDE RECORDS SUMMARY | 2025-06-30 16:55 | XMS_ITS | Encounter Summary ---
Author Organization [facility] Address [address] [facility] [address] [place] [address] Phone Care Team Providers Care Changer Fixer Name Role Phone Deepika Roche MD Unavailable Omid Trejo MD Primary Care Provider [phone] Omid Trejo MD Unavailable Encounter Details Date Type Department Care Team (Late Contact Info) Description 12/06/2021 Ancillary Orders [facility],Outside Imaging 30 [place] [address] System, Provider Not In, [place] [address] Social History Tobacco Use Types Packs/Day Years [...] Description 07/07/2025 2:50 PM EDT Office Visit [facility] & Midw[facility]ery [address] [place] [address] [place] [address] Paul White MD 22 [facility], [address] [place] [address] 09/07/2025 10:30 AM EST Office Visit [facility] Internal Medicine 40 [place], [place] [phone] Omid Trejo MD 40 [place], [place] [phone] documented as of this encounter Results * Mammogram Outside (No Interpretation) (08/08/2017 12:00 AM EDT) Narrative SYSTEMGENERATED, DOCUMENTATION - 12/06/2021 2:39 PM EST This study is for PACS [...] documented as of this encounter Care Teams Changer Fixer Relationship Specialty Start Date End Date Omid Trejo MD [address] [place] [address] PCP - General Internal Medicine 10/31/20 Deepika Roche MD [address] [place] [address], [address] [place] [address] Obstetrics and Gynecology 04/19/20 Omid Trejo MD [address] [place] [address] [phone] Insurance Assigned Provider 12/17/20 06/22/23 documented as of this encounter Additional Source Comments The information contained in this document represents components of the legal health record. It is not the complete legal health record.[facility]
--- OUTSIDE RECORDS SUMMARY | 2025-06-30 16:55 | XMS_ITS | Encounter Summary ---
Author Organization [facility] Address [address] [facility] [address] [place] [address] Phone Care Team Providers Care Pediatric Oncology Nurse Name Role Phone Deepika Roche MD Unavailable Omid Trejo MD Primary Care Provider [phone] Encounter Details Date Type Department Care Team (Late st Contact Info) Description 06/02/2025 Orders Only [facility] Internal Medicine 40 [place] [address] Provider, MD Saray [address] [place] [address] Social History Tobacco Use Types Packs/Day [...] high school, GED, job training, learning the [place] language, technical skills, or developing parenting skills)? [...] Visit [facility] [address] [place] [address] [place] [address] Paul White MD [address] [address] 09/07/2025 10:30 AM EST Office Visit [facility] Internal Medicine 40 [place], [place] [phone] Omid Trejo MD 40 [place], [place] [phone] documented as of this encounter Procedures Procedure Name Priority Date/Time Associated Diagnosis Comments HM MAMMOGRAPHY Routine 05/28/2025 12:55 PM EDT documented in this encounter Results * MAMMOGRAPHY FOR RESULT ENTRY ONLY (05/28/2025 12:55 PM EDT) us Historical Provider HEALTH MAINTENANCE Final Result documented in this encounter Visit Diagnoses Not on filedocumented in this encounter Additional Health Concerns Assessment Noted Time PHQ-2 Depression Total Score: 0 07/06/20 24 1:40 PM EDT documented as of this encounter Care Teams Pediatric Oncology Nurse Relationship Specialty Start Date End Date Omid Trejo MD 40 [place], [place] [phone] PCP - General Internal Medicine 10/31/20 Deepika Roche MD 22 [facility], [address] [address] Obstetrics and Gynecology 04/19/20 documented as of this encounter Additional Source Comments The information contained in this document represents components of the legal health record. It is not the complete legal health record.[facility]
== END 2025-06-30 13:14 | disposition home or self-care (01) ==
LOC: HO.MAMMO 13:13
PROVIDERS: PCP Internal Medicine; Visit Provider Internal Medicine
DX: R92.8 Other abnormal and inconclusive findings on diagnostic imaging of breast (principal)
CPT/HCPCS: 76642; 77061; 77065

== ENCOUNTER → 2025-06-30 13:30 | Outpatient (BNV) | payer MEDICAID, SELFPAY | PROVIDERS: PCP Internal Medicine; Visit Provider Internal Medicine | DX: R92.8 Other abnormal and inconclusive findings on diagnostic imaging of breast (principal) | CPT/HCPCS: 76642; 77061; 77065 ==